=== PATIENT | male | born 1980 | race Caucasian/White ===

== ENCOUNTER 2017-01-29 | Emergency (ER) | payer OTHER ==
[~2017-01-29] MED LIST: LASIX20 MG PO; PROTONIX40 MG PO
[2017-01-29 22:26] LABS: HEMOGLOBIN 17.8 gm/dl (14.0-17.5); RED BLOOD COUNT 5.75 M/UL (4.20-5.50); WHITE BLOOD COUNT 16.4 K/UL (4.5-11.0)
[2017-01-29 22:43] LABS: BUN/CREATININE RATIO 8 (0-10)
[2017-07-28] MEDS ORDERED: NEURONTIN 400400 MG PO (11:23)
[2017-07-28] MEDS ORDERED: ZAROXOLYN/DIULO5 MG PO (11:24)
[2017-07-28] MEDS ORDERED: LANOXIN TAB0.125 MG PO (11:24)
[2017-07-28] MEDS ORDERED: COZAAR 25MG TAB25 MG PO (11:25)
[2017-07-28] MEDS ORDERED: LASIX40 MG PO (11:25)
[2017-07-28] MEDS ORDERED: KLOR-CON M2020 MEQ PO (11:26)
[2017-07-28] MEDS ORDERED: ALDACTONE 25MG25 MG PO (11:26)
[2017-07-28] MEDS ORDERED: FLONASE 0.05% N16 GM (11:27)
[2017-07-30] MEDS ORDERED: ASPIR-LOW81 MG PO (11:18)
[2017-07-30] MEDS ORDERED: COREG 3.125M3.125 MG PO (11:19)
[2017-07-30] MEDS ORDERED: LANOXIN TAB0.125 MG PO (11:19)
[2017-07-30] MEDS ORDERED: FLONASE 0.05% N16 GM (11:20)
== END 2017-01-30 00:05 | disposition left against medical advice (07) ==
PROVIDERS: Family Medicine
DX: R00.0 Tachycardia, unspecified (principal); R05 Cough; F17.200 Nicotine dependence, unspecified, uncomplicated; Z86.79 Personal history of other diseases of the circulatory system; Z79.899 Other long term (current) drug therapy
CPT/HCPCS: 36415; 71010; 80053; 82550; 82553; 83874; 83880; 84484; 85025; 93005; 99285; J2405